=== PATIENT | male | born 1975 | race Caucasian/White ===

== ENCOUNTER 2017-04-17 07:47 | Day surgery (SDC) | payer BC ==
[~2017-04-17 07:47] MED LIST: ATROPINE SULFATE 0.4 MG/1 ML VIAL IVP PRN; DEXAMETHASONE PF 10 MG/1 ML VIAL ONE; HYDROmorphone 2 MG/1 ML IVP PRN; KETOROLAC 30 MG/1 ML VIAL ONE; LIDOCAINE MPF 2% - 5 ML (20 MG/1 ML) ONE; LIDOCAINE W/ SODIUM BICARB 0.5 ML SYR ONE; Lactated Ringers 1,000 ML PRIMARY IV SCH; Lactated Ringers 2,000 ML PRIMARY IV ONE; MIDAZOLAM 5 MG/1 ML ONE; NORMAL SALINE 10 ML SYRINGE FLUSH IVP PRN; ONDANSETRON 4 MG/2 ML VIAL IVP PRN; Ondansetron ODT Tab 8 MG TAB PO PRN; ROCURONIUM 10 MG/1 ML - 5 ML VIAL IVP ONE; SUFENTANIL 50 MCG/1 ML ONE; Sodium Chloride 0.9% vial 10 ML ONE; fentaNYL Inj 100 MCG/2 ML VIAL IVP PRN
[2017-04-17] MEDS ORDERED: Acetaminophen 1000mg Inj 100 ML IV ONE (07:49)
[2017-04-17] MEDS ORDERED: IPRATROPIUM/ALBUTEROL SULFATE 3 ML NEB NEB PRN (08:34)
[2017-04-17] MEDS ORDERED: IPRATROPIUM/ALBUTEROL SULFATE 3 ML NEB NEB ONE (08:36)
[2017-04-17] MEDS ORDERED: BUPIVACAINE 0.25% W/ EPI - 10 ML VIAL ONE (08:45)
[2017-04-17] MEDS ORDERED: GLYCOPYRROLATE 0.2 MG/1 ML VIAL ONE (10:10)
[2017-04-17] MEDS ORDERED: NEOSTIGMINE 1 MG/1 ML - 10 ML ONE (10:10)
[2017-04-17] MEDS ORDERED: BUPivacaine Liposome/PF (Exparel) Inj 20ml vial INFIL ONE (10:15)
[2017-04-17] MEDS ORDERED: ONDANSETRON 4 MG/2 ML VIAL ONE (11:04)
[2017-04-17] MEDS ORDERED: Lactated Ringers 1,000 ML PRIMARY IV ONE (11:05)
[2017-04-17] MEDS ORDERED: HYDROmorphone 2 MG/1 ML ONE (11:12)
[2017-04-17] MEDS ORDERED: oxyCODONE IR Tab 5 MG TAB PO PRN (11:20)
[2017-04-17] MEDS ORDERED: oxyCODONE IR Tab 5 MG TAB PO ONE (11:23)
--- NOTE | 2017-04-17 11:34 | GEN.OPNOTE ---
Operative Note Surgery Date: 04/17/17 Preoperative Diagnosis: Biliary dyskinesia with 29% ejection fraction Postoperative Diagnosis: Biliary dyskinesia Procedure: Laparoscopic cholecystectomy single site with da Evelyne Surgeon: Matt Jara MD Clinical Lab Scientist: Yoseph Pelletier MD Anesthesia Provider: Irene Aguirre CRNA Anesthesia Type: General Estimated Blood Loss (mL): 1 Fluids: LR please see anesthesia notes in EMR Indications: Gallbladder sent Findings: Patient Sol White gallbladder indicating chronic cholecystitis Operative Summary: The patient is going to the operating room placed in supine position given general endotracheal anesthesia after adequate anesthesia patient is prepped draped sterile fashion. 0.025% Marcaine was infiltrated around the umbilicus a 2.5 cm incision was made through the umbilicus sharp dissection was carried to the subcutaneous tissue. Open the abdominal wall with sharp dissection once in the abdominal cavity I put the single side-port in pneumoperitoneum was obtained by insufflating CO2. After adequate pneumoperitoneum of the patient was positioned. We then put the camera port and docked in standard fashion. We then measured the gallbladder appropriate trocar size. We then docked the. robot to the camera and standard fashion. We then placed the ports and docked appropriately to the da Evelyne robot. The mail handler assistant port was then placed. Gallbladder rest of the fundus retracted over liver edge. The surgeon then went to the console. Because the mail handler assistant port was in the way one of the camera while holding the fundus above the liver edge I had the mail handler assistant remove the grasper. I grasped the gallbladder at Yonathan's pouch. This gave me enough exposure to dissect out the cystic duct and cystic artery. I then dissected out the cystic duct. With 3 hemoclips 2 proximally one distally and then divided the cystic duct. Dissection of the cystic artery placed 2 hemoclips and then divided the cystic artery next to the gallbladder. Then dissected the gallbladder off the liver edge using the cautery we irrigated until clear. I then had the gallbladder grasped by the metal forger's assistant do this is port. We then undocked from robot and removed all trochars. We inserted the camera and inspected there is no injuries the common bile ducts no evidence of bile leak there was adequate hemostasis. Then removed the camera and port and removed the single site port along with the gallbladder. The fascia was closed with 0 Vicryl contusion or suture. Skin reapproximated using 4-0 Monocryl simple sutures. Sutures were applied sterile dressing was applied. Counts were correct. The patient was transferred to recovery room in stable condition.
[2017-04-17 12:46] VITALS: RESP 18
[2017-04-17 12:47] VITALS: TEMP 97
== END 2017-04-17 11:56 | disposition home or self-care (01) ==
LOC: SDSC 07:47
PROVIDERS: ATTEND Surgery
DX: K82.8 Other specified diseases of gallbladder (principal); M94.0 Chondrocostal junction syndrome [Tietze]
CPT/HCPCS: 47562; 94640; A4216; C9290; J0131; J1100; J1170; J1885; J2001; J2250; J2405; J2704; J2710; J7620; J7120